=== PATIENT | female | born 1945 | race Hispanic/Latino ===

== ENCOUNTER 2017-01-30 07:58 | Emergency (ER) | payer MEDICARE ==
[2017-01-30 08:07] VITALS: BMI 25.7
[2017-01-30 08:09] VITALS: BP 158/92; PULSE 87; RESP 16; TEMP 98.5; O2SAT 97
--- NOTE | 2017-01-30 08:33 | ED PDOC ---
Arrival/HPI - General Chief Complaint: Upper Extremity Problem/Injury Time Seen by Provider: 01/30/17 08:21 Historian: Patient - History of Present Illness Narrative History of Present Illness (Text): 01/30/17 08:26 Karla Perez is a 72 year old female who presents to the emergency department with 4 day history of pain and swelling to the left wrist. Patient denies trauma or injury to the extremity. Patient is right handed but uses her left hand primarily because she has an AV Fistula in her right arm for Dialysis. Patient denies any fever, chills, or any other complaints. PMD: None reported. Time/Duration: < week (4 days) Symptom Onset: Gradual Symptom Course: Unchanged Activities at Onset: Light Context: Home Associated Symptoms (Text): 01/30/17 08:39 Several day history of left nondominant wrist pain with no injury or trauma. Similar episode one year ago. Past Medical History - Provider Review Nursing Documentation Reviewed: Yes - Infectious Disease Hx of Infectious Diseases: None - Tetanus Immunization Tetanus Immunization: Unknown - Cardiac Hx Cardiac Disorders: Yes Hx Hypertension: Yes Hx Pacemaker: No - Pulmonary Hx Respiratory Disorders: Yes Hx Chronic Obstructive Pulmonary Disease (COPD): Yes - Neurological Hx Neurological Disorder: No Hx Paralysis: No - HEENT Hx HEENT Disorder: No - Renal Hx Renal Disorder: Yes Hx Dialysis: Yes (mwf) Date of Last Dialysis Treatment: 01/28/17 - Endocrine/Metabolic Hx Endocrine Disorders: No - Hematological/Oncological Hx Blood Disorders: Yes Hx Blood Transfusions: Yes (40 YRS AGO) Hx Blood Transfusion Reaction: No - Integumentary Hx Dermatological Disorder: No - Musculoskeletal/Rheumatological Hx Musculoskeletal Disorders: No - Gastrointestinal Hx Gastrointestinal Disorders: No - Genitourinary/Gynecological Hx Genitourinary Disorders: No - Psychiatric Hx Emotional Abuse: No Hx Physical Abuse: No Hx Substance Use: No - Surgical History Hx Cardiac Catheterization: Yes Hx Section: Yes Hx Coronary Stent: Yes - Anesthesia Hx Anesthesia Reactions: No Hx Malignant Hyperthermia: No - Suicidal Assessment Feels Threatened In Home Enviroment: No Family/Social History - Physician Review Nursing Documentation Reviewed: Yes Family/Social History: No Known Family HX Smoking Status: Never Smoked Hx Alcohol Use: No Hx Substance Use: No Allergies/Home Meds Allergies/Adverse Reactions: Allergies bumetanide [From Bumex] Allergy (Severe, Verified 01/30/17 08:06) ANGIOEDEMA furosemide [From Lasix] Allergy (Severe, Verified 01/30/17 08:06) ANGIOEDEMA Home Medications: Home Meds Medication Instructions Recorded Confirmed Aspirin [Ecotrin] 81 mg PO DAILY 01/30/16 01/30/17 Calcium Acetate [Phoslo] 2 cap PO TID 01/30/16 01/30/17 Cholecalciferol (Vitamin D3) 1,000 iu PO DAILY 01/30/16 01/30/17 [Vitamin D3] Irbesartan [Avapro] 300 mg PO DAILY 01/30/16 01/30/17 Clopidogrel [Plavix] 75 mg PO DAILY 02/04/16 01/30/17 Simvastatin [Zocor] 40 mg PO DAILY 02/04/16 01/30/17 Metoprolol Succinate [Toprol XL] 50 mg PO DAILY 02/21/16 01/30/17 ALPRAZolam [Xanax] 0.25 mg PO BID PRN 06/15/16 01/30/17 Albuterol/Ipratropium [Combivent 1 inh INH DAILY 01/30/17 01/30/17 Respimat] Folic Acid/Vit B Complex and C 1 tab PO DAILY 01/30/17 01/30/17 [Stephenie-Joey Tablet] Phenytoin [Phenytoin] 300 mg PO HS 01/30/17 01/30/17 Phenytoin, Extended [Dilantin] 30 mg PO HS 01/30/17 01/30/17 Zolpidem [Ambien] 10 mg PO HS 01/30/17 01/30/17 amLODIPine [Norvasc] 5 mg PO DAILY 01/30/17 01/30/17 Review of Systems - Physician Review All systems were reviewed & negative as marked: Yes - Review of Systems Constitutional: Normal. absent: Fevers Respiratory: Normal. absent: SOB, Cough Cardiovascular: Normal. absent: Chest Pain Gastrointestinal: Normal. absent: Abdominal Pain, Diarrhea, Nausea, Vomiting Musculoskeletal: Other (Left Wrist Pain and Swelling) Skin: Normal Neurological: Normal Physical Exam Vital Signs Reviewed: Yes Vital Signs Temp Pulse Resp BP Pulse Ox 01/30/17 08:06 98.5 F 87 16 158/92 H 97 Temperature: Afebrile Blood Pressure: Hypertensive Pulse: Regular Respiratory Rate: Normal Appearance: Positive for: Well-Appearing, Non-Toxic, Comfortable Pain Distress: None Mental Status: Positive for: Alert and Oriented X 3 - Systems Exam Upper Extremity: Present: Normal ROM, NORMAL PULSES, Tenderness (Left Wrist Tender), Swelling (Left Wrist Swollen), Neurovascularly Intact, Capillary Refill < 2s, Other (Elbow and Fingers Normal). No: Edema, Erythema (No Warmth) , Deformity Medical Decision Making ED Course and Treatment: 01/30/17 08:26 Impression: 72 year old female with complaining of pain and swelling to the left wrist for four days. Plan: -- Left Wrist X-Ray -- Reassess and disposition Prior Visits: Notes and results from previous visits were reviewed. Patient was last seen in the emergency department on 05/30/16 for chest pain and renal failure. Progress Notes: 01/30/17 09:06 Left wrist sprain. Treated with ice and elevation and splinting and sling. Follow-up with PMD. Follow-up in the ER as needed. - RAD Interpretation Radiology Orders: 01/30/17 08:22 WRIST, LEFT 3 VIEWS [RAD] Stat Left wrist 3 view shows an old distal radius fracture. No new fracture or dislocation Police Stenographer: ED Physician - Scribe Statement The provider has reviewed the documentation as recorded by the Janis Anne Provider Attestation: All medical record entries made by the Janis were at my direction and personally dictated by me. I have reviewed the chart and agree that the record accurately reflects my personal performance of the history, physical exam, medical decision making, and the department course for this patient. I have also personally directed, reviewed, and agree with the discharge instructions and disposition. Disposition/Present on Arrival - Present on Arrival Any Indicators Present on Arrival: No History of DVT/PE: No History of Uncontrolled Diabetes: No Urinary Catheter: No History of Decub. Ulcer: No History Surgical Site Infection Following: None - Disposition Have Diagnosis and Disposition been Completed?: Yes Diagnosis: Left wrist sprain Disposition: HOME/ ROUTINE Disposition Time: 09:07 Patient Plan: Discharge Condition: GOOD Discharge Instructions (ExitCare): Wrist Injury (ED) Additional Instructions: Rest ice and elevation. Follow-up with PMD. Follow-up in ER as needed. Prescriptions: Tramadol HCl [Ultram] 50 mg PO Q6 PRN #14 tab PRN Reason: Pain
--- NOTE | 2017-01-30 12:37 | RAD ---
PROCEDURE: Left Wrist Radiographs. HISTORY: pain COMPARISON: None. FINDINGS: BONES: Normal. No fracture. JOINTS: Normal. No dislocation. SOFT TISSUES: Questionable calcification of triangular fibrocartilage, not evident on prior examination. OTHER FINDINGS: None. IMPRESSION: No fracture/ dislocation
== END 2017-01-30 09:22 | disposition home or self-care (01) ==
LOC: ED 07:58
DX: S63.502A Unspecified sprain of left wrist, initial encounter (principal); X58.XXXA Exposure to other specified factors, initial encounter; Y92.9 Unspecified place or not applicable

== ENCOUNTER 2017-02-13 00:07 | Emergency (ER) | payer MEDICARE ==
[2017-02-13 00:08] VITALS: BMI 25.7
[2017-02-13 00:21] VITALS: BP 142/70; PULSE 97; RESP 18; TEMP 98.4; O2SAT 96
--- NOTE | 2017-02-13 00:57 | ED PDOC ---
Arrival/HPI - General Chief Complaint: Back Pain Time Seen by Provider: 02/13/17 00:30 Historian: Patient - History of Present Illness Narrative History of Present Illness (Text): 02/13/17 00:54 Karla Perez is a 72 year female, whose past medical history includes chronic kidney disease, hypertension, seizure disorder, anxiety, and COPD, who presents to the Emergency department complaining of neck pain. Patient states she has been experiencing neck pain/stiffness described as muscle spasms since yesterday. Patient states she took Zanaflex at home, but denies any significant relief. Patient denies any headache, dizziness, chest pain, nausea, vomiting, or any other complaints. Symptom Onset: Gradual Symptom Course: Unchanged Activities at Onset: Rest, Light Context: Home Past Medical History - Provider Review Nursing Documentation Reviewed: Yes - Infectious Disease Hx of Infectious Diseases: None - Tetanus Immunization Tetanus Immunization: Unknown - Cardiac Hx Cardiac Disorders: Yes Hx Hypertension: Yes Hx Pacemaker: No - Pulmonary Hx Respiratory Disorders: Yes Hx Chronic Obstructive Pulmonary Disease (COPD): Yes - Neurological Hx Neurological Disorder: No Hx Paralysis: No - HEENT Hx HEENT Disorder: No - Renal Hx Renal Disorder: Yes Hx Dialysis: Yes ([facility]) Date of Last Dialysis Treatment: 01/28/17 - Endocrine/Metabolic Hx Endocrine Disorders: No - Hematological/Oncological Hx Blood Disorders: Yes Hx Blood Transfusions: Yes (40 YRS AGO) Hx Blood Transfusion Reaction: No - Integumentary Hx Dermatological Disorder: No - Musculoskeletal/Rheumatological Hx Musculoskeletal Disorders: No - Gastrointestinal Hx Gastrointestinal Disorders: No - Genitourinary/Gynecological Hx Genitourinary Disorders: No - Psychiatric Hx Emotional Abuse: No Hx Physical Abuse: No Hx Substance Use: No - Surgical History Hx Cardiac Catheterization: Yes Hx Section: Yes Hx Coronary Stent: Yes - Anesthesia Hx Anesthesia Reactions: No Hx Malignant Hyperthermia: No - Suicidal Assessment Feels Threatened In Home Enviroment: No Family/Social History - Physician Review Nursing Documentation Reviewed: Yes Family/Social History: No Known Family HX Smoking Status: Never Smoked Hx Alcohol Use: No Hx Substance Use: No Allergies/Home Meds Allergies/Adverse Reactions: Allergies bumetanide [From Bumex] Allergy (Severe, Verified 01/30/17 08:06) ANGIOEDEMA furosemide [From Lasix] Allergy (Severe, Verified 01/30/17 08:06) ANGIOEDEMA Home Medications: Home Meds Medication Instructions Recorded Confirmed Aspirin [Ecotrin] 81 mg PO DAILY 01/30/16 02/13/17 Calcium Acetate [Phoslo] 2 cap PO TID 01/30/16 02/13/17 Cholecalciferol (Vitamin D3) 1,000 iu PO DAILY 01/30/16 02/13/17 [Vitamin D3] Irbesartan [Avapro] 300 mg PO DAILY 01/30/16 02/13/17 Clopidogrel [Plavix] 75 mg PO DAILY 02/04/16 02/13/17 Simvastatin [Zocor] 40 mg PO DAILY 02/04/16 02/13/17 Metoprolol Succinate [Toprol XL] 50 mg PO DAILY 02/21/16 02/13/17 ALPRAZolam [Xanax] 0.25 mg PO BID PRN 06/15/16 02/13/17 Albuterol/Ipratropium [Combivent 1 inh INH DAILY 01/30/17 02/13/17 Respimat] Folic Acid/Vit B Complex and C 1 tab PO DAILY 01/30/17 02/13/17 [Stephenie-Joey Tablet] Phenytoin [Phenytoin] 300 mg PO HS 01/30/17 02/13/17 Phenytoin, Extended [Dilantin] 30 mg PO HS 01/30/17 02/13/17 Zolpidem [Ambien] 10 mg PO HS 01/30/17 02/13/17 amLODIPine [Norvasc] 5 mg PO DAILY 01/30/17 02/13/17 Review of Systems - Physician Review All systems were reviewed & negative as marked: Yes - Review of Systems Constitutional: Normal. absent: Fevers Eyes: Normal ENT: Normal Respiratory: Normal. absent: SOB, Cough Cardiovascular: Normal. absent: Chest Pain Gastrointestinal: Normal. absent: Abdominal Pain, Diarrhea, Nausea, Vomiting Genitourinary Female: Normal. absent: Dysuria, Frequency, Hematuria, Urine Output Changes Musculoskeletal: Neck Pain. absent: Back Pain Skin: Normal. absent: Rash Neurological: Normal. absent: Headache, Dizziness Endocrine: Normal Hemo/Lymphatic: Normal Psychiatric: Normal Physical Exam Vital Signs Reviewed: Yes Vital Signs Temp Pulse Resp BP Pulse Ox 02/13/17 00:19 98.4 F 97 H 18 142/70 96 Temperature: Afebrile Blood Pressure: Normal Pulse: Regular Respiratory Rate: Normal Appearance: Positive for: Well-Appearing, Non-Toxic, Comfortable Pain Distress: None Mental Status: Positive for: Alert and Oriented X 3 - Systems Exam Head: Present: Atraumatic, Normocephalic Pupils: Present: PERRL Extroacular Muscles: Present: EOMI Conjunctiva: Present: Normal Mouth: Present: Moist Mucous Membranes Pharnyx: Present: Normal. No: ERYTHEMA, EXUDATE, TONSILS ENLARGED, Peritonsilar Swelling, Uvular Deviation, Muffled/Hoarse Voice, Strider, Soft Palate/Uvular Edema Neck: Present: Paraspinal Tenderness (Tenderness/muscle spasm to left lateral trapezius/cervical muscle group, no dorsal spinal tenderness). No: Meningeal Signs, MIDLINE TENDERNESS Respiratory/Chest: Present: Clear to Auscultation, Good Air Exchange. No: Respiratory Distress, Accessory Muscle Use Cardiovascular: Present: Regular Rate and Rhythm, Normal S1, S2. No: Murmurs Abdomen: Present: Normal Bowel Sounds. No: Tenderness, Distention, Peritoneal Signs Back: Present: Normal Inspection. No: CVA Tenderness, Midline Tenderness, Paraspinal Tenderness Upper Extremity: Present: Normal Inspection. No: Cyanosis, Edema Lower Extremity: Present: Normal Inspection. No: Edema Neurological: Present: GCS=15, CN II-XII Intact, Speech Normal Skin: Present: Warm, Dry, Normal Color. No: Rashes Psychiatric: Present: Alert, Oriented x 3, Normal Insight, Normal Concentration Medical Decision Making ED Course and Treatment: 02/13/17 00:54 Impression: 72 year old female complaining of neck stiffness/spasm. Plan: -- XR Cervical Spine -- Percocet -- Valium -- Reassess and disposition Prior Visits: Notes and results from previous visits were reviewed. Progress Notes: 02/13/17 02:08 Reviewed radiology, XR Cervical Spine shows no acute processes. Chronic arthritic changes. 02/13/17 02:30 On re-evaluation, the patient feels better and is in no acute distress. I have discussed the results and plan with the patient, who expresses understanding. Patient in agreement with plan to discharged home. Patient is stable for discharge. Patient was instructed to follow up with physician/clinic in 1-2 days or return if symptoms worsen or new concerning symptoms arise. - RAD Interpretation Radiology Orders: 02/13/17 00:59 CERVICAL SPINE AP & LATERAL [RAD] Stat Shingles Roofer Helper: ED Physician - Medication Orders Current Medication Orders: Discontinued Medications Diazepam (Valium) 2 mg PO ONCE ONE PRN Reason: Protocol Stop: 02/13/17 00:59 Last Admin: 02/13/17 01:04 Dose: 2 mg Oxycodone/Acetaminophen (Percocet 5/325 Mg Tab) 1 tab PO STAT STA Stop: 02/13/17 00:59 Last Admin: 02/13/17 01:06 Dose: 1 tab - Scribe Statement The provider has reviewed the documentation as recorded by the Scribe Jenniffer Barton All medical record entries made by the Candieibaisha were at my direction and personally dictated by me. I have reviewed the chart and agree that the record accurately reflects my personal performance of the history, physical exam, medical decision making, and the department course for this patient. I have also personally directed, reviewed, and agree with the discharge instructions and disposition. Disposition/Present on Arrival - Present on Arrival Any Indicators Present on Arrival: No History of DVT/PE: No History of Uncontrolled Diabetes: No Urinary Catheter: No History of Decub. Ulcer: No History Surgical Site Infection Following: None - Disposition Have Diagnosis and Disposition been Completed?: Yes Diagnosis: Cervical muscle strain, Muscle spasm Disposition: HOME/ ROUTINE Disposition Time: 02:33 Patient Plan: Discharge Condition: GOOD Discharge Instructions (ExitCare): Cervical Strain (DC), Muscle Spasm (ED) Additional Instructions: Apply warm compresses to the affected area/take meds as prescribed/follow up with your doctor this week Prescriptions: oxyCODONE/Acetaminophen [Percocet 5/325 mg Tab] 1 ea PO Q6 PRN #16 tab PRN Reason: Pain, Moderate (4-7) Diazepam [Valium] 2 mg PO Q6 PRN #16 tablet PRN Reason: Muscle Spasm Referrals: Day Martinez MD [Primary Care Provider] - Follow up with primary
[2017-02-13] MEDS ORDERED: Oxycodone/Acetaminophen 5/325 mg Tab PO STA (00:58)
--- NOTE | 2017-02-13 08:13 | RAD ---
PROCEDURE: Cervical Spine Radiographs. HISTORY: Pain. COMPARISON: None. FINDINGS: BONES: Alignment maintained. No fracture. Dens Intact. DISC SPACES: Multilevel disc space narrowing and spondylosis. SOFT TISSUES: Normal. No prevertebral soft tissue swelling. OTHER FINDINGS: None. IMPRESSION: Multilevel disc space narrowing and spondylosis.
== END 2017-02-13 02:45 | disposition home or self-care (01) ==
LOC: ED 00:07
DX: S16.1XXA Strain of muscle, fascia and tendon at neck level, initial encounter (principal); X58.XXXA Exposure to other specified factors, initial encounter; Y92.9 Unspecified place or not applicable